=== PATIENT | male | born 1995 | race Two or more races ===

== ENCOUNTER 2021-10-14 20:00 | Emergency (ER) | payer OTHER ==
[~2021-10-14] VITALS: Ht 175.3 cm; Wt 81.6 kg
[2021-10-14] MEDS ORDERED: EC-NAPROSYN375 MG PO (22:22)
[2021-10-14] MEDS ORDERED: ORPHENADRINE C100 MG PO (22:22)
== END 2021-10-14 22:41 | disposition home or self-care (01) ==
LOC: ER 20:00
DX: R07.89 Other chest pain (principal)